=== PATIENT | male | born 1980 | race Asian ===

== ENCOUNTER 2020-09-02 11:30 | Emergency (ER) | payer OTHER ==
[~2020-09-02] VITALS: Ht 162.6 cm; Wt 69.4 kg
[2020-09-02] MEDS ORDERED: SODIUM CHLORIDE FLUSH 10 ML SYR INJ PRN (12:00)
[2020-09-02] MEDS ORDERED: KETOROLAC TROMETHAMINE 30 MG/ML VIAL IV NR (12:30)
[2020-09-02] MEDS ORDERED: KETOROLAC TROMETHAMINE 30 MG/ML VIAL ONE (13:01)
[2020-09-02] MEDS ORDERED: PREDNISONE20 MG PO (13:29)
[2020-09-02 13:35] VITALS: BP 120/76
== END 2020-09-02 13:41 | disposition home or self-care (01) ==
LOC: FSED 11:58
DX: R07.89 Other chest pain (principal); S29.011A Strain of muscle and tendon of front wall of thorax, initial encounter; W22.09XA Striking against other stationary object, initial encounter; Y92.814 Boat as the place of occurrence of the external cause; R94.31 Abnormal electrocardiogram [ECG] [EKG]
CPT/HCPCS: 71046; 80048; 80307; 82553; 83880; 84484; 85025; 85379; 85610; 93005; 96374; 99284; J1885